=== PATIENT | male | born 1980 | race Caucasian/White ===

== ENCOUNTER 2016-07-24 17:37 | Emergency (ER) | payer OTHER ==
[2016-07-24 18:10] VITALS: BP 97/73; PULSE 75; RESP 18; TEMP 97.9; O2SAT 95
--- NOTE | 2016-07-24 19:13 | UCPHY ---
H & P Time Seen by Provider: 07/24/16 18:10 Patient Type: New HPI/ROS: This patient has a rash in hands and feet that is itchy. He also has a mild cough and sore throat. He explains the the mild sore throat and cough started 2 days ago the itchy rash started this morning and has worsened. He also thinks he has mild lip swelling. He is concerned that he might have Raymond spotted fever after walking his symptoms up online. ROS: No recent fevers or chills. No other constitutional symptoms including myalgias. HEENT: No headache. No difficulty eating or drinking. Neuro: No headache. No neck stiffness or confusion. Pulmonary: No pleuritic pain or shortness of breath cardiovascular: No heart palpitations or lightheadedness. No recent tick bites. No obvious exposure to allergens. 10 point ROS is otherwise negative Past Medical/Surgical History: Otherwise healthy. Social History: He is a professor at [employer]. No recent travel out of [facility]. No recent tick bites. Smoking Status: Never smoked Physical Exam: General Appearance: Alert, no distress. Eyes: Pupils equal and round no pallor or injection. ENT, Mouth: Mucous membranes moist. Lips reveal mild swelling consistent with mild angioedema. No intraoral lesions. No drooling or stridor. Does have a slightly hoarse voice. Ears: Clear bilaterally nose: Clear discharge. No sinus tenderness to percussion. Respiratory: There are no retractions, lungs are clear to auscultation. No wheezing. Cardiovascular: Regular rate and rhythm. Gastrointestinal: Abdomen is soft and nontender, no masses, bowel sounds normal. Neurological: Alert with no focal deficits Skin: Patient has erythematous papules that are to 3 cm in size as small as 1 cm to hands, top this feed him part of his face torres easily with pressure consistent with urticaria. No petechia or purpura. Musculoskeletal: Neck is supple nontender. Extremities are symmetrical, full range of motion. Psychiatric: Normal mood and affect DIFFERENTIAL DIAGNOSIS: After history and physical exam differential diagnosis was considered for URI, allergic urticaria and angioedema, viral exanthem, influenza Constitutional: Initial Vital Signs Temperature (C) 36.6 C 07/24/16 18:07 Heart Rate 75 07/24/16 18:07 Respiratory Rate 18 07/24/16 18:07 Blood Pressure 97/73 L 07/24/16 18:07 O2 Sat (%) 95 07/24/16 18:07 O2 Delivery Mode Room Air Allergies/Adverse Reactions: No Known Allergies Allergy (Unverified 07/24/16 18:07) Home Medications: Medication Instructions Recorded Famotidine [Pepcid] 40 mg PO DAILY #7 tablet 07/24/16 predniSONE 60 mg PO DAILY #16 tab 07/24/16 MDM/Departure - MDM Diagnostics: Rapid strep and rapid flu negative. Patient is treated with prednisone 60 mg p.o. and Pepcid 40 mg for his mild lip angioedema and urticaria. Despite his symptoms is no evidence of airway threat, anaphylaxis or other concerning findings. I counseled regarding allergic urticaria and angioedema. Medications Given: Discontinued Medications Famotidine (Pepcid) 40 mg PO EDNOW ONE Stop: 07/24/16 19:48 Last Admin: 07/24/16 19:47 Dose: 40 mg Prednisone (Prednisone) 60 mg PO EDNOW ONE Stop: 07/24/16 19:47 Last Admin: 07/24/16 19:46 Dose: 60 mg - Depart Disposition: Home, Routine, Self-Care Clinical Impression: Viral URI, Urticaria Clinical Impression: (Ruled Out): Viral exanthem Condition: Good Instructions: Upper Respiratory Infection (ED), Viral Exanthem (ED) Additional Instructions: Diagnosis: 1. Allergic urticaria 2. angioedema Plan: Drink plenty fluids benadryl 25-50 mg per 6 hrs as needed for itching and rash Pepcid 40 mg daily Prednisone-next dose in the morning after breakfast Go to the emergency department for any significant worsening despite the treatment plan Prescriptions: Famotidine [Pepcid] 40 mg PO DAILY #7 tablet predniSONE 60 mg PO DAILY #16 tab Referrals: NONE *PRIMARY CARE P,. [Primary Care Provider] - As per Instructions - PQRS PQRS Measurement: NA
[2016-07-24] MEDS ORDERED: predniSONE 20 MG TAB PO ONE (19:46)
[2016-07-24] MEDS ORDERED: predniSONE 20 MG TAB ONE (19:47)
[2016-07-24] MEDS ORDERED: FAMOTIDINE 20 MG TAB ONE (19:47)
[2016-07-24] MEDS ORDERED: FAMOTIDINE 20 MG TAB PO ONE (19:47)
== END 2016-07-24 20:22 | disposition home or self-care (01) ==
LOC: CED 17:37
DX: J06.9 Acute upper respiratory infection, unspecified (principal); L50.0 Allergic urticaria
CPT/HCPCS: 87400-PO; 87880-PO; 99203-PO; G0463-PO